=== PATIENT | male | born 1970 | race Caucasian/White ===

== ENCOUNTER 2024-04-19 11:41 | Emergency (ER) | payer OTHER, SELFPAY ==
[2024-04-19 11:42] VITALS: BP 146/87
--- NOTE | 2024-04-19 12:46 | ED.GENMED ---
History of Present Illness
General
Chief Complaint: Musculo-Skeletal Complaint
Source: patient
Time Seen by Provider: 04/19/24 12:27
History of Present Illness
History of Present Illness:
54-year-old male presenting to the emergency department for evaluation after he slipped and fell last night injuring his left shoulder, today with decreased range of motion and continued pain. Patient states due to the pain he has very limited
range of motion and when attempts to perform range of motion it causes him more discomfort. Patient denies any previous history of injury or surgery to the left upper extremity but does note previous injury to the right biceps which was repaired by
[facility] orthopedics. No other injuries or concerns.
Past History
Past History
ED Past Medical History: None
ED Past Surgical History: Orthopedic
Social History
Tobacco: Non-smoker
Alcohol: Occasional
Drug: None
Personal:
Living: with family
Employment: Employed
Review of Systems
Review of Systems
All Other Systems: ROS reviewed and negative except as documented in HPI and ROS
Phy Exam
Physical Exam
Physical Exam:
GENERAL: Alert , in no apparent distress
EYE: conjunctiva clear
Head: Normocephalic atraumatic
NECK: Supple,
ENT: mmm.
LUNGS: no acute respiratory distress
NEUROLOGICAL: Alert and oriented
SKIN: Warm and dry, skin intact.
MUSCULOSKELETAL: Left upper extremity: No obvious deformity, erythema, edema, ecchymosis, abrasions or lacerations. Significantly diminished active and passive range of motion at the left shoulder secondary to pain. Patient also has discomfort
when flexing/extending his left elbow but states the elbow is not what is hurting him it is the shoulder that causes the pain. Easily palpable radial pulse. Cap refill less than 2 seconds and sensation is grossly intact to light touch.
PSYCH: Normal and appropriate interaction.
Scores
Heart Failure Risk
Heart Failure Risk Score: Not Applicable
Heart Score for Chest Pain Patients
STEMI patient?: Not applicable
Withdrawal Assessment of Alcohol
Withdrawal Assessment Completed?: Not applicable
Course
Orders/Labs/Results
Orders:
Orders
04/19/24 11:44
CR Shoulder, Trauma - Left Urgent
Reason For Exam: pain
Humerus, Left 2 Views [CR Humerus - Left Min 2 Views*] Urgent
Comment:
Reason For Exam: pain
04/19/24 12:46
Sling Left-Treatment ONCE
Vital Signs
Initial and Last Documented VS:
Initial Vital Signs
Temp Pulse Resp BP Pulse Ox
97.5 F 82 18 146/87 97
04/19/24 11:42 04/19/24 11:42 04/19/24 11:42 04/19/24 11:42 04/19/24 11:42
Last Documented Vital Signs
Temp Pulse Resp BP Pulse Ox
97.5 F 82 18 146/87 97
04/19/24 11:42 04/19/24 11:42 04/19/24 11:42 04/19/24 11:42 04/19/24 11:42
MDM/Problems Addressed
Differential Diagnosis Includes:
Sprain, contusion, fracture, dislocation
MDM/Problems Addressed:
54-year-old male presenting the ER for evaluation after slipping and falling on ice last night injuring his left shoulder, now with significantly decreased range of motion and pain with attempted range of motion. X-rays were ordered from triage and
show no acute fracture. Arthritic changes noted. Will place in sling for comfort. NSAIDs/Tylenol as needed for pain. Patient will follow-up with Patricia for further evaluation. Otherwise stable for discharge home
*Radiology
Radiology exam reviewed: preliminary read by ED provider (No acute fracture. Degenerative changes)
*Pulse Oximetry
Patient hypoxic: no
*Critical Care Note
Total Time (30-74mins, 75-104mins- exclusive of procedures): Not Applicable
ED Attending Note
-
Portions of this chart may have been created with voice recognition software.� Occasional wrong word or��sound alike� substitutions may have occurred due to the inherent limitations of voice recognition software.
Discharge Plan
Departure
Patient Disposition: Home (Routine Discharge)
Date of Disposition: 04/19/24
Time of Disposition: 12:46
Patient with high blood pressure during this ER visit?: Yes
Discharge Problem:
Sprain of left shoulder
Instructions: Shoulder pain - ED discharge instructions
Referrals:
Ortega Dill MD [Active] - (Ortho - Please call for appointment)
Dany Márquez DO [Family Provider] -
Stand Alone Forms: Return to Work
Interventions
Interventions:
*Risk Screen - Suicide Last Done: 04/19/24 11:42
*General Assessment Last Done: 04/19/24 11:42
*Neglect/Abuse Screening Last Done: 04/19/24 11:42
ED- Fall Risk Assessment Last Done: 04/19/24 12:19
*ED COVID-19 Vaccine History Last Done: 04/19/24 11:42
*Nursing Disposition Last Done: 04/19/24 13:05
ED-Musculoskeletal Assessment Last Done: 04/19/24 12:19
Discharge Date and Time
Print Language: NICARAGU[place]
== END 2024-04-19 13:05 | disposition home or self-care (01) ==
LOC: EMR 11:41
PROVIDERS: EMERGENCY PHYSICIAN Student in an Organized Health Care Education/Training Program; FAMILY PHYSICIAN Family Medicine
DX: S43.402A Unspecified sprain of left shoulder joint, initial encounter (principal); W00.0XXA Fall on same level due to ice and snow, initial encounter; R03.0 Elevated blood-pressure reading, without diagnosis of hypertension
CPT/HCPCS: 99283; 73030; 73060